=== PATIENT | female | born 1985 | race Caucasian/White ===

== ENCOUNTER → 2017-02-02 | Outpatient (CLI) | payer MEDICARE, MEDICAID ==
--- NOTE | ~2017-02-02 | NDGEN ---
PATIENT'S NAME: [facility] AGE: 32 Y [address] ROOM: [place] [address] LOCATION: [facility] ADMIT DATE: 02/02/2017 Neurodiagnostics DISCHARGE DATE: FAMILY PHYSICIAN: Delta Parker MD ATTENDING PHYSICIAN: Juan J Soto PROCEDURE: ELECTROENCEPHALOGRAM DATE OF PROCEDURE: 02/02/2017 PROCEDURE: EEG. TIME: 11:58 a.m. This EEG was done to rule out any possibility of syncope versus seizure. The general background rhythm showed a normal sinusoidal pattern of 10-12 hertz alpha activity that was present with the patient alert and awake. The alpha pattern was more highlighted when her eyes were closed which is a normal finding. This alpha pattern was noted throughout and did not display any asymmetry. When the patient was noted to be asleep, there was slowing down appropriately of the background rhythm to 5-6 hertz theta activity. The patient did not attain deep sleep. At no time was there any epileptiform features seen and no seizures were recorded. IMPRESSION: Normal EEG. MD JAMES SANCHEZ/arnulfo /[id number] dtt: 02/27/17 1602 FLAVIA JASON R. dtd: 02/02/17 1745
== END | disposition disaster alternative care site (69) ==
LOC: GNEU 11:00
DX: R29.898 Other symptoms and signs involving the musculoskeletal system (principal)